=== PATIENT | female | born 1980 | race Caucasian/White ===

== ENCOUNTER 2020-03-17 11:33 | Outpatient (CLI) | payer OTHER, SELFPAY ==
[2020-03-17 12:15] LABS: Basophils Percent Auto 0.4 % (0.2-1.2); Eosinophils Absolute Auto 0.2 K/mm3 (0-0.3); Eosinophils Percent Auto 2.2 % (0-4.4); Hemoglobin 14.7 g/dL (12.0-15.0); Immature Granulocyte Absolute 0.02 K/mm3 (0.00-0.031); Immature Granulocyte Percent A 0.3 % (0-0.5); Lymphocytes Percent Auto 29.6 % (18.3-44.2); Mean Corpuscular HGB Conc 33.4 g/dl (32-36); Mean Corpuscular Hemoglobin 29.8 pg (26-34); Mean Corpuscular Volume 89.2 fl (80-100); Mean Platelet Volume 8.9 fl (7.4-10.4); Monocytes Absolute Auto 0.5 K/mm3 (0.1-0.6); Monocytes Percent Auto 6.5 % (2.6-8.5); Neutrophils Absolute Auto 4.5 K/mm3 (1.3-6.7); Platelet Count Result 362 k/mm3 (150-375); Red Blood Count 4.93 M/mm3 (4.2-5.4); Red Cell Distribution Width 13.2 % (11.5-14.5); White Blood Count 7.4 K/mm3 (4.5-10.0)
[2020-03-17 12:26] LABS: Alanine Aminotransferase 19 U/L (4-35); Albumin Level 4.7 g/dL (3.5-5.1); Alkaline Phosphatase 104 U/L (38-126); Aspartate Amino Transferase 24 U/L (14-36); Bilirubin,Total 0.4 mg/dL (0.2-1.3); Blood Urea Nitrogen 15 mg/dL (7-17); Calcium 9.6 mg/dL (8.4-10.2); Carbon Dioxide 24 mmol/L (22-30); Chloride 105 mmol/L (98-107); Cholesterol 211 mg/dL (0-200); Estimated Glomerular Filt Rate > 60; Glucose 94 mg/dL (65-105); HDL Direct 58 mg/dL; Potassium 4.4 mmol/L (3.4-5.0); Sodium 138 mmol/L (137-145); Triglycerides 81 mg/dL (<150)
[2020-03-17 12:37] LABS: LDL Cholesterol Direct 116 mg/dL
== END 2020-03-17 11:34 | disposition home or self-care (01) ==
DX: Z00.00 Encounter for general adult medical examination without abnormal findings (principal); E03.9 Hypothyroidism, unspecified
CPT/HCPCS: 36415; 80053; 80061; 84443; 85025

== ENCOUNTER 2021-09-14 11:21 | Emergency (ER) | payer OTHER, SELFPAY ==
[2021-09-14 11:36] VITALS: BP 144/93; PULSE 99; RESP 18; TEMP 37.2; O2SAT 99
--- NOTE | 2021-09-14 12:34 | ED.GENADULT ---
HPI - General Adult General Chief complaint: Upper Respiratory Infection Stated complaint: sorethroat,drainage both ears Source: patient Mode of arrival: ambulatory Limitations: no limitations History of Present Illness HPI narrative: Patient is a 41-year-old female presents to the [facility] via POV for evaluation of a sore throat that began 2 to 3 days ago. Additionally, she reports lymphadenopathy and white patches on tonsils. Tea with honey provides some relief. Nothing worsens symptoms. Patient states she is vaccinated against Covid and influenza. 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 Related Data Home Medications Medication Instructions Recorded Confirmed levonorgestrel [Mirena] 1 insert INTRAUTERINE ONCE 09/14/21 09/14/21 levothyroxine 125 mcg DAILY 09/14/21 09/14/21 Allergies Allergy/AdvReac Type Severity Reaction Status Date / Time No Known Allergies Allergy Unknown Verified 09/14/21 12:25 Review of Systems Review of Systems: Denies fever, chills, sweats, change in appetite, poor p.o. intake, headaches, LOC, dizziness, ear pain, ear drainage, abdominal pain, nausea, vomiting, diarrhea, drooling, difficulty swallowing, cough, shortness of breath, wheezing, cyanosis, chest pain, and heart palpitations PMFSH Comments I have reviewed and agree with the patient's past medical, surgical, social, and family hx as documented by the RN. There is no relevant family history pertinent to the presenting complaint. Exam Narrative: GENERAL: Well-appearing, well-nourished, and in no acute distress. HEAD: Normocephalic, atraumatic. No sinus tenderness or facial swelling appreciated. EYES: PERRLA and EOMI. No evidence of erythema, swelling, or drainage. ENT: Bilateral external ears and ear canals normal. Bilateral TMs are normal.No TM perforation. Nares clear, no rhinorrhea or epistaxis. Bilateral turbinates without erythema/ swelling. Mucous membranes moist and pink. Uvula is midline without erythema and swelling. Bilateral tonsils are moderately edematous, erythematous, and with a moderate amount of exudate. No evidence of petechial rash, cobblestoning, lesions, ulcers, peritonsillar abscess, tenting, or drooling. Breath odor and voice normal. NECK: Supple. Bilateral submandibular lymphadenopathy appreciated. No nuchal rigidity appreciated. CHEST: Bilateral lung reina are clear to auscultation. No respiratory distress. No evidence of cough or pleuritic cp upon examination. HEART: Regular rate and rhythm. No murmur, gallop, or rub heard. EXTREMITIES: Normal range of motion. No edema. SKIN: Warm, dry, no rash. NEURO: No focal deficits. Alert and oriented x3. Course Vital Signs Vital signs: Vital Signs Temperature 99 F 09/14/21 11:36 Pulse Rate 99 09/14/21 11:36 Respiratory Rate 18 09/14/21 11:36 Blood Pressure 144/93 H 09/14/21 11:36 Pulse Oximetry 99 09/14/21 11:36 Temperature 99 F 09/14/21 11:36 Pulse Rate 99 09/14/21 11:36 Respiratory Rate 18 09/14/21 11:36 Blood Pressure 144/93 H 09/14/21 11:36 Pulse Oximetry 99 09/14/21 11:36 Due to an elevated blood pressure, I had a detailed discussion with the patient and/or guardian regarding the need for follow-up with their primary care provider within the next 3-4 days. Patient verbalized understanding and agreed. Medical Decision Making MDM Narrative Medical decision making narrative: Pen-V K for empirical treatment for strep. Differential Diagnosis Differential Diagnosis: Allergic rhinitis, ABRS, acute viral sinusitis, strep pharyngitis, nasopharyngitis, bronchitis, pneumonia, AOM, otitis externa, viral URI, influenza, covid-19 Medical Records Medical records reviewed: Yes I reviewed the external patient's medical records. Vital Signs Vital Signs: Vital Signs Temperature 99 F 09/14/21 11:36 Pulse Rate 99 09/14/21 11:36 Respiratory Rate 18 09/14/21 11:36 Blood Pressure 144/93 H
== END 2021-09-14 13:00 | disposition home or self-care (01) ==
PROVIDERS: Emergency Provider Nurse Practitioner Family; PCP Family Medicine
DX: J02.9 Acute pharyngitis, unspecified (principal); E03.9 Hypothyroidism, unspecified
CPT/HCPCS: 87081; 87880; 99213; G0463

== ENCOUNTER 2021-12-16 08:25 | Outpatient (CLI) | payer OTHER, SELFPAY ==
[2021-12-16 09:59] LABS: Basophils Percent Auto 0.5 % (0.2-1.2); Eosinophils Absolute Auto 0.2 K/mm3 (0-0.3); Hematocrit 40.3 % (37.0-47.0); Hemoglobin 13.4 g/dL (12.0-15.0); Immature Granulocyte Absolute 0.02 K/mm3 (0.00-0.031); Immature Granulocyte Percent A 0.3 % (0-0.5); Lymphocytes Absolute Auto 2.11 K/mm3 (0.9-3.2); Lymphocytes Percent Auto 31.7 % (18.3-44.2); Mean Corpuscular HGB Conc 33.3 g/dl (32-36); Mean Corpuscular Volume 90.4 fl (80-100); Mean Platelet Volume 9.1 fl (7.4-10.4); Monocytes Absolute Auto 0.5 K/mm3 (0.1-0.6); Monocytes Percent Auto 7.4 % (2.6-8.5); Neutrophils Absolute Auto 3.8 K/mm3 (1.3-6.7); Neutrophils Percent Auto 57.1 % (45.5-73.1); Platelet Count Result 347 k/mm3 (150-375); Red Blood Count 4.46 M/mm3 (4.2-5.4); White Blood Count 6.7 K/mm3 (4.5-10.0)
[2021-12-16 10:01] LABS: Alanine Aminotransferase 17 U/L (4-35); Albumin Level 4.3 g/dL (3.5-5.1); Alkaline Phosphatase 72 U/L (38-126); Anion Gap 7 mmol/L (8-16); Aspartate Amino Transferase 23 U/L (14-36); Bilirubin,Total 0.3 mg/dL (0.2-1.3); Blood Urea Nitrogen 16 mg/dL (7-17); Calcium 9.1 mg/dL (8.4-10.2); Carbon Dioxide 26 mmol/L (22-30); Chloride 108 mmol/L (98-107); Cholesterol 199 mg/dL (0-200); Estimated Glomerular Filt Rate > 60; Glucose 90 mg/dL (65-110); HDL Direct 47 mg/dL; Potassium 3.8 mmol/L (3.4-5.0); Sodium 141 mmol/L (137-145); Triglycerides 72 mg/dL (<150)
[2021-12-16 10:12] LABS: LDL Cholesterol Direct 103 mg/dL
== END 2021-12-16 08:26 | disposition home or self-care (01) ==
PROVIDERS: PCP Family Medicine
DX: Z00.00 Encounter for general adult medical examination without abnormal findings (principal); E03.9 Hypothyroidism, unspecified
CPT/HCPCS: 36415; 80053; 80061; 84443; 85025

== ENCOUNTER 2023-01-24 07:37 | Outpatient (CLI) | payer OTHER, SELFPAY ==
--- NOTE | ~2023-01-24 | MM_ITS ---
EXAMINATION: MM screening [facility] BI w dora HISTORY: Screening mammogram TECHNIQUE: Craniocaudal and mediolateral oblique 3-D tomosynthesis images were obtained and synthetic 2-D images were generated. CAD analysis was submitted and interpreted. COMPARISON: None, baseline BREAST PARENCHYMAL COMPOSITION: The breasts are heterogeneously dense, which may obscure small masses . FINDINGS: RIGHT BREAST: An asymmetry is present in the far posterior third of the inner right breast on the aircraft life support fitter niocaudal view. LEFT BREAST: There are possible obscured masses in the middle third of the lower inner breast. IMPRESSION: 1. Bilateral breast findings as above. 2. Additional mammographic views and possible breast ultrasound are recommended to evaluate the bilat eral breast findings and establish a baseline given that this is the first mammographic examination. BI-RADS Category 0: Incomplete: Needs additional imaging evaluation. Reviewed, dictated and finalized at location A. IMPRESSION: 1. Bilateral breast findings as above. 2. Additional mammographic views and possible breast ultrasound are recommended to evaluate the bilateral breast findings and establish a baseline given that this is the first mammographic examination. BI-RADS Category 0: Incomplete: Needs additional imaging evaluation.
== END 2023-01-24 07:38 | disposition home or self-care (01) ==
LOC: ANHIMG 07:41
PROVIDERS: PCP Family Medicine; Visit Provider Nurse Practitioner
DX: Z12.31 Encounter for screening mammogram for malignant neoplasm of breast (principal); R92.8 Other abnormal and inconclusive findings on diagnostic imaging of breast
CPT/HCPCS: 77063; 77067

== ENCOUNTER 2023-02-15 12:41 | Outpatient (CLI) | payer OTHER, SELFPAY ==
--- NOTE | ~2023-02-15 | MMUS_ITS ---
EXAMINATION: MM diagnostic [facility] BI w dora, US breast BI limited HISTORY: Bilateral mammographic asymmetries reported in the lower inner quadrant of each breast on 06/2023 screening mammogram TECHNIQUE: Additional 3-D tomosynthesis images of both breasts were performed and synthetic 2-D image s were generated. CAD analysis was submitted and interpreted. High resolution bilateral lower inner q uadrant breast ultrasound was performed. COMPARISON: 01/24/2023 bilateral screening mammogram FINDINGS: MAMMOGRAPHIC FINDINGS: There is a focal asymmetric density at the very posterior inner aspect of the right breast in cranioc audal projection, interspersed with central fatty density, likely benign. There is asymmetric nonspecific mammographic density in the lower inner quadrant of the left breast; ultrasound correlation was performed. ULTRASOUND: No suspicious mass is noted in the lower inner quadrant of the right breast. There is a nonspecific area of elongated irregular hypoechoic tissue at 5:00 near the nipple, measuri ng at least 9.4 x 14 x 7 mm. No shadowing is noted. There is some surrounding vascular signal on colo r flow imaging. Differential diagnosis includes benign fibroglandular asymmetry versus malignancy. Ul trasound-guided biopsy is recommended IMPRESSION: 1. Indeterminate elongated irregular area of diminished echogenicity of left breast at 5:00 near nipp le 2. Ultrasound-guided biopsy of left breast 5:00 area is recommended BI-RADS category 4, suspicious findings. Dr. Rosenberg telephoned the report and ultrasound-guided biopsy recommendation of left breast 5:00 area o n 02/15/2023 at 1345 hours to [facility]. Reviewed, dictated and finalized at location A. IMPRESSION: 1. Indeterminate elongated irregular area of diminished echogenicity of left br east at 5:00 near nipple 2. Ultrasound-guided biopsy of left breast 5:00 area is recommended BI-RADS category 4, suspicious findings. Dr. Rosenberg telephoned the report and ultrasound-guided biopsy recommendation of l eft breast 5:00 area on 02/15/2023 at 1345 hours to [facility]. IMPRESSION: 1. Indeterminate elongated irregular area of diminished echogenicity of left br east at 5:00 near nipple 2. Ultrasound-guided biopsy of left breast 5:00 area is recommended BI-RADS category 4, suspicious findings. Dr. Rosenberg telephoned the report and ultrasound-guided biopsy recommendation of l eft breast 5:00 area on 02/15/2023 at 1345 hours to [facility].
== END 2023-02-15 12:42 | disposition home or self-care (01) ==
LOC: ANHIMG 12:42
PROVIDERS: PCP Family Medicine; Visit Provider Nurse Practitioner
DX: R92.8 Other abnormal and inconclusive findings on diagnostic imaging of breast (principal)
CPT/HCPCS: 76642; 77062; 77066; G0279